=== PATIENT | male | born 1985 | race Hispanic/Latino ===

== ENCOUNTER 2018-05-08 23:54 | Emergency (ER) | payer OTHER, SELFPAY ==
--- NOTE | 2018-05-09 10:58 | RAD ---
RIGHT ANKLE 3 VIEWS: Date: 05/09/18 PROVIDED CLINICAL HISTORY: Right ankle pain status post injury. FINDINGS: No evidence for fracture or other acute osseous abnormality. If there is persistent clinical concern, conservative management and follow-up imaging are advised. IMPRESSION: As above. POS: [facility]
--- NOTE | 2018-05-09 10:59 | RAD ---
RIGHT FOOT 3 VIEWS: Date: 05/09/18 PROVIDED CLINICAL HISTORY: Right foot injury. FINDINGS: No evidence for fracture or other acute osseous abnormality. If there is persistent clinical concern, conservative management and follow-up imaging are advised. IMPRESSION: As above. POS: [facility]
== END 2018-05-09 02:06 | disposition home or self-care (01) ==
LOC: ERS 23:54
DX: S93.401A Sprain of unspecified ligament of right ankle, initial encounter (principal); F41.9 Anxiety disorder, unspecified; F17.210 Nicotine dependence, cigarettes, uncomplicated; X50.1XXA Overexertion from prolonged static or awkward postures, initial encounter

== ENCOUNTER 2018-05-16 20:11 | Emergency (ER) | payer SELFPAY | END 2018-05-16 22:57 | disposition home or self-care (01) | LOC: ERS 20:11 | DX: L05.01 Pilonidal cyst with abscess (principal); F17.210 Nicotine dependence, cigarettes, uncomplicated | CPT/HCPCS: 10080 ==